=== PATIENT | female | born 1955 | race Caucasian/White ===

== ENCOUNTER 2016-06-10 13:03 | Emergency (ER) | payer OTHER ==
[2016-06-10 13:18] VITALS: TEMP 98
--- NOTE | 2016-06-10 13:51 | CPEKG ---
Heart Rate: 66 RR Interval: 909 P-R Interval: 140 QRSD Interval: 74 QT Interval: 412 QTC Interval: 432 P [place]: 70 QRS [place]: 71 T Wave [place]: 68 EKG Severity - BORDERLINE ECG - EKG Impression: SINUS RHYTHM EKG Impression: BORDERLINE T ABNORMALITIES, ANT-LAT LEADS EKG Impression: No significantinterval changes appreciated when compared to an EKG dated EKG Impression: June 01, 2010 Electronically Signed By: Daniel Washington 10-Jun-2016 15:03:00
--- NOTE | 2016-06-10 14:19 | UCPHY ---
H & P Patient Type: Established Chief Complaint Nursing Narrative: 2 wks ago c/o inc. occular migraines then over past weeks some cognitive issues - yesterday leg weakness and blt arm numbness Time Seen by Provider: 06/10/16 13:08 HPI/ROS: This patient complains of multiple vague neurological complaints over to week. She explains that she has been followed by Dr. Franco, her primary care physician and has outpatient workup occurring including a pending carotid study. She explains that she has had increased frequency of ocular migraines over the past 2 weeks-3 week in the past 2 weeks characterized by right eye scintillating scotoma and occasional mild occipital headaches. Her most recent ocular migraine was 4 days prior to arrival in resolved after about 45 minutes which is typical for her. However she usually only occasionally has ocular migraines with less frequency than this. She notes no clear triggers for the symptoms. She also fell 2 weeks ago that she had difficulty remembering her dog's name was so bit slow in her mentation. That episode is resolved. She described a 2 hour episode of feeling slightly weak in the lower leg 2 weeks ago. Yesterday she had paresthesias in her left arm lasting for 2 hours or so without associated symptoms and this morning she had feeling of right arm heaviness that was brief and resolved prior to arrival. At the moment she is free of any neurological symptoms. ROS: No recent fevers or chills. No significant fatigue. No other constitutional symptoms. HEENT: No recent URI symptoms or sinus pain. Neuro: No headache currently. At the moment no focal numbness tingling weakness. Pulmonary: No cough. No dyspnea. Cardiovascular: No heart palpitations. No chest pain. No lower extremity swelling. GI: No nausea vomiting diaphoresis. : No says complaints. Integumentary: No skin rash endocrine: No complaints 10 point ROS is otherwise negative. Source: Patient Exam Limitations: No limitations - Personal History Current Tetanus Diphtheria and Acellular Pertussis (TDAP): Yes - Medical/Surgical History PMH: Rheumatoid arthritis Legally blind left eye-previous eye surgery with lens dislocation then lens removed and also retinal surgery Possible mild myasthenia Hx Asthma: No Hx Chronic Respiratory Disease: No Hx Diabetes: No Hx Cardiac Disease: No Hx Renal Disease: No Hx Cirrhosis: No Hx Alcoholism: No Hx HIV/AIDS: No Hx Splenectomy or Spleen Trauma: No Other PMH: HYPOTHRYOID, ARTHRITIS - Family History Significant Family History: No pertinent family hx - Social History Smoking Status: Never smoked Alcohol Use: None Drug Use: None - Physical Exam Exam: Physical exam: Vital signs are normal General: Patient is in no acute distress. HEENT: Is no external evidence of trauma on exam. Eyes: Pupils are equal and reactive to light. Extraocular motions are intact. Optic fundi: Clear with no papilledema or hemorrhage. Nose atraumatic. Ears: Clear bilaterally with no hemotympanum. Oropharynx: No dental trauma or malocclusion. No intraoral lacerations. Neck: Supple with no meningismus. Lungs: Clear to auscultation bilaterally Cardiac: Regular rate and rhythm no murmur gallop or rub. No carotid bruits are appreciated. Chest: Nontender. Abdomen: Soft nontender no organomegaly Back: Nontender Extremities: Atraumatic Neuro: GCS of 15. Cranial nerves II through XII intact. Cerebellar exam is normal as judged by symmetric rapid hand movements bilaterally. No pronator drift. No sensory or motor deficits are appreciated. Initial differential diagnosis: Intracranial lesion, intracranial bleed, MS, metabolic disarray, Constitutional: Initial Vital Signs Temperature (C) 36.6 C 06/10/16 13:16 Heart Rate 78 06/10/16 13:16 Respiratory Rate 18 06/10/16 13:16 Blood Pressure 178/103 H 06/10/16 13:16 O2 Sat (%) 97 06/10/16 13:16 O2 Delivery Mode Room Air Allergies/Adverse Reactions: Penicillins Allergy (Verified 12/12/14 20:22) ARTHRITIS REACTION Home Medications: Medication Instructions Recorded Estragial 06/15/13 LEVOTHYROXINE SODIUM [Tirosint 06/15/13 50mcg] Melaxicam 06/15/13 Methotrexate Sodium [Methotrexate] 06/15/13 Diltiazem HCl [Cartia Xt] 12/12/14 Medical Decision Making - Diagnostics EKG Interpretation: 12 lead EKG performed shortly after arrival indication neurologic symptoms rule out dysrhythmia or other Sinus rhythm at 66 performed at 1:[address] segment is normal except for a flat T-wave in V2 when compared to previous EKG dated June 01, 2010 appreciate no significant interval changes. Overall assessment sinus rhythm without evidence of acute ischemia or infarct. Imaging: Imaging Impressions Head CT 06/10/16 13:23 Impression: Negative for intracranial abnormality with the study appearing normal for a patient of this age. Notation that the left lens is missing. Results called and discussed with Dr. Daniel Washington, on June 10, 2016 at 1357 hours. ED Course/Re-evaluation: Patient remained stable throughout her stay here without active neurologic symptoms. No evidence of stroke currently. CT head today's normal. No evidence of intracranial lesions, bleed or other concerning findings. Explain patient warrants further completion of her workup for differential diagnosis includes possible TIAs. She is pursuing this with her neurologist and her internal medicine physician. Departure - Departure Disposition: Home, Routine, Self-Care Clinical Impression: Neurological symptoms Hypertension Qualifiers: Hypertension type: essential hypertension Qualified Code(s): I10 - Essential ( primary) hypertension Condition: Good Instructions: Hypertension (ED) Additional Instructions: Diagnosis: 1. Neurological symptoms 2. Hypertension Your CT brain appears normal today. There is no change in your EKG. Plan: Continue current medications Follow up with your neurologist and with her primary care physician for further workup as planned. Go to the emergency department for any significant worsening of symptoms despite the treatment plan Referrals: Renée Stapleton MD [Primary Care Provider] - As per Instructions - PQRS PQRS Measurement: NA
[2016-06-10 14:24] VITALS: BP 147/77; PULSE 77; RESP 14; O2SAT 96
== END 2016-06-10 14:30 | disposition home or self-care (01) ==
LOC: CED 13:03
DX: I10 Essential (primary) hypertension (principal); R29.818 Other symptoms and signs involving the nervous system; G43.909 Migraine, unspecified, not intractable, without status migrainosus
CPT/HCPCS: 70450-PO; 93010-PO; 99215-PO; G0463-PO

== ENCOUNTER → 2016-12-01 | Outpatient (CLI) | payer OTHER | LOC: BRMIMAGING 13:15 | PROVIDERS: ATTEND Obstetrics & Gynecology | DX: Z12.31 Encounter for screening mammogram for malignant neoplasm of breast (principal) | CPT/HCPCS: G0202 ==

== ENCOUNTER 2017-01-26 23:30 | Emergency (ER) | payer OTHER ==
[2017-01-26] MEDS ORDERED: NS 1,000 ML IV ONE (23:48)
[2017-01-26 23:58] VITALS: TEMP 97.7
[2017-01-27 00:07] LABS: INR 0.98 (0.83-1.16); PROTIME(PATIENT) 12.7 SEC (12.0-15.0)
[2017-01-27 00:09] LABS: % IMMATURE GRANULYOCYTES 0.2 % (0.0-1.1); ABSOLUTE IMMATURE GRANULOCYTES 0.01 10^3/uL (0.00-0.10); ADD DIFF? NO; ADD MORPH? NO; ADD SCAN? NO; ATYPICAL LYMPHOCYTE FLAG 10 (0-99); FRAGMENT RBC FLAG 0 (0-99); HEMATOCRIT 42.8 % (38.0-47.0); HEMOGLOBIN 14.7 g/dL (12.6-16.3); LEFT SHIFT FLG 0 (0-99); LIPEMIA HEMOLYSIS FLAG 90 (0-99); MEAN CELL HEMOGLOBIN 31.7 pg (27.9-34.1); MEAN CELL HEMOGLOBIN CONCENTR. 34.3 g/dL (32.4-36.7); MEAN CELL VOLUME 92.4 fL (81.5-99.8); MEAN PLATELET VOLUME 10.4 fL (8.7-11.7); PLATELET CLUMPS FLAG 0 (0-99); PLATELET COUNT 298 10^3/uL (150-400); RED BLOOD CELL COUNT 4.63 10^6/uL (4.18-5.33)
[2017-01-27 00:11] LABS: ANION GAP 17 mEq/L (8-16); CALCIUM 9.1 mg/dL (8.5-10.4); CARBON DIOXIDE 22 mEq/l (22-31); CHLORIDE 100 mEq/L (97-110); CREATININE 0.7 mg/dL (0.6-1.0); GLOMERULAR FILTRATION RATE > 60; GLUCOSE 136 mg/dL (70-100); POTASSIUM 4.1 mEq/L (3.5-5.2); SODIUM 139 mEq/L (134-144)
--- NOTE | 2017-01-27 00:11 | CPEKG ---
Heart Rate: 81 RR Interval: 741 P-R Interval: 128 QRSD Interval: 80 QT Interval: 384 QTC Interval: 446 P [place]: 75 QRS [place]: 72 T Wave [place]: 66 EKG Severity - BORDERLINE ECG - EKG Impression: SINUS RHYTHM EKG Impression: PROBABLE LEFT ATRIAL ABNORMALITY EKG Impression: BORDERLINE T ABNORMALITIES, ANT-LAT LEADS, coving seen in V5 and V6 is EKG Impression: unchanged from June 10, 2016. Stable mild coving. Electronically Signed By: Duane Navarrete 27-Jan-2017 02:28:53
--- NOTE | 2017-01-27 00:19 | EDPHY ---
H & P Time Seen by Provider: 01/26/17 23:47 HPI/ROS: CHIEF COMPLAINT: Left facial droop, improving HISTORY OF PRESENT ILLNESS: this is a neurologically complicated 61-year-old female with prior history of myasthenia gravis, and in particular, the last 6 months with migratory numbness and paresthesias along with increasing ocular migraine. Tonight she is here for facial droop. This is a new finding for her, something she has never had before, though it is improving. Onset was approximately 20 minutes prior to arrival. She was at home resting, though working on the computer doing some Telugu lessons as well as watching TV. It was at that time approximately, an hour and half prior to admission, 1030pm, that she started having some central vision changes which is her typical ocular migraine. Of note, often times, in fact usually, it will migrate to cause visual changes in the periphery. However, the did not do that at this time. Further, it did not involve the headache per se. At approximately 11:30 p.m. she felt a sense of numbness in thickness to her left lip. [facility] and noted a facial droop and thus a pretty much dropped everything and came on over. She had noted herself some improvement but time she arrived. On arrival our nurse noted droop that was mild. By the time I saw her was barely perceptible. She denies other neurologic problems such as visual field defect (has pre- existing left visual field cut), as well as norm other numbness, difficulty speaking, difficulty with enunciation, or articulating, or word-finding, or word salad. No motor weakness. Onset: At 10:30 p.m., less than 3 hours ago Activity at time of onset: watching TV Computer work Clinical Course: improved almost resolved Symptoms: Left facial droop and sense of thickening to the left lip History of potential mimics: Migraine migratory paresthesias workup in the last 6 months including C-spine MRI which was negative Prior Neurological Work Up: She notes that she had an MRI of the brain this past summer though I have not been able to localize it on the [employer] web site. REVIEW OF SYSTEMS: Constitutional: No fever, no chills. Eyes: No discharge No diplopia ENT: No sore throat. Cardiovascular: No chest pain, no palpitations. Respiratory: No cough, shortness of breath, or wheezing. Gastrointestinal: No nausea vomiting or diarrhea. No abdominal pain. Genitourinary: No flank pain. Musculoskeletal: No motor weakness or back pain. Skin: No rashes. Neurological: No headache, see above 10 point ROS otherwise negative Source: Patient Exam Limitations: No limitations - Medical/Surgical History Hx Asthma: No Hx Chronic Respiratory Disease: No Hx Diabetes: No Hx Cardiac Disease: No Hx Renal Disease: No Hx Cirrhosis: No Hx Alcoholism: No Hx HIV/AIDS: No Hx Splenectomy or Spleen Trauma: No Other PMH: HYPOTHRYOID, ARTHRITIS,Myesthenia Gravis, Migraine with aura, Rheumatoid Arthritis. - Social History Smoking Status: Never smoked Alcohol Use: None Drug Use: None - Physical Exam Exam: General Appearance: Alert, no distress. Afebrile. Normal phonation. No respiratory distress. Eyes: Pupils equal and round no pallor or injection. No icterus ENT, Mouth: Mucous membranes moist. Pharynx without erythema or exudate. TM Clear. Neck: No adenopathy. Supple. No JVD. Trachea in midline. Respiratory: There are no retractions, lungs are clear to auscultation. Chest wall: Nontender to palpation. No crepitus. Cardiovascular: Regular rate and rhythm, no murmurs. Abdomen: Soft and nontender. Neurological: Ox3. No motor weakness. Sensation intact. Gait nl. CN 2-12 intact except pre-existing left visual field deficit which is globally reduced on the periphery. Visual Steiner as above EOMI nl Gait nl Speech fluent Enuciation nl Motor: nl Sensation: nl Skin: Warm and dry, no rashes. Musculoskeletal: No joint swelling. Extremities: No edema. Homans sign negative. No cords. Psychiatric: Normal affect. Patient is oriented X 3. There is no agitation Constitutional: Initial Vital Signs Temperature (C) 36.5 C 01/26/17 23:30 Heart Rate 100 01/26/17 23:30 Respiratory Rate 20 01/26/17 23:30 Blood Pressure 192/98 H 01/26/17 23:30 O2 Sat (%) 95 01/26/17 23:30 O2 Delivery Mode Room Air Allergies/Adverse Reactions: Penicillins Allergy (Verified 12/12/14 20:22) ARTHRITIS REACTION Home Medications: Medication Instructions Recorded Estragial 06/15/13 LEVOTHYROXINE SODIUM [Tirosint 06/15/13 50mcg] Melaxicam 06/15/13 Methotrexate Sodium [Methotrexate] 06/15/13 Diltiazem HCl [Cartia Xt] 12/12/14 FOLIC ACID 01/26/17 Medical Decision Making - Diagnostics EKG Interpretation: EKG: Interpreted by me contemporaneously. Rhythm: [Normal sinus rhythm.] Heart rate 81 QTc 446 QRS: [normal] STT segment: Mild coving in leads V5 and V6, unchanged from June 10, 2016 T Waves: [Normal] Q waves [none] Summary: Old coving in V5 V6, unchanged from June 10, 2016 Imaging Results: CT scan of the brain without contrast, as interpreted by the radiologist and discussed with radiologist and reviewed by me: No acute change, no signs of stroke involvement. No hemorrhage. Unchanged from June 10, 2016. Films reviewed by me on the PACS Imaging: Discussed imaging studies w/ yard caller Radiologist ED Course/Re-evaluation: Close exam, while his 1st interviewed her, the little of the left facial droop that was there resolved completely. Her neurologic exam thereafter remained normal. Her blood pressure was somewhat elevated initially at 192 systolic. It progressively came down slowly on its own to approximately 168. This remained elevated from her baseline per her history. She declined any Ativan. She will have follow-up for this later this week. CT scan of the head was read by noon the neurologist is negative, case discussed with urologist, films reviewed by me on the PACS. Patient was rechecked if the CT scan and showed continued complete resolution. Blood pressure was improving Case discussed with Dr. Richards of [facility]. He concurred that this was a complex migraine, resolved, was not indication for tPA. He did advise a MRI later in the week, or as a consideration overnight observation and performing the morning. I discussed case with the hospitalist at [facility] who concurred with the plan for outpatient management as the patient research such. I did give the patient the option of going to [facility] tonight, be seen in their ER, and have a MRI tonight. She declined. She is aware of the shortened work week and potential delay. Subsequently started on aspirin 324 mg p.o. she was directed to take the aspirin prior trim blocks can to avoid any interference of the aspirin efficacy. Differential Diagnosis: Differential Includes but is not limited to: Intraparenchymal hemorrhage, subarachnoid hemorrhage, migraine, complex migraine , seizures, CVA, TIA. - Data Points Laboratory Results: Laboratory Results 01/26/17 23:48 01/26/17 23:48 Medications Given: Discontinued Medications Aspirin (Aspirin) 324 mg PO EDNOW ONE Stop: 01/27/17 00:52 Last Admin: 01/27/17 00:58 Dose: 324 mg Aspirin (Aspirin) 324 mg PO EDNOW ONE Stop: 01/27/17 00:53 Last Admin: 01/27/17 00:58 Dose: Not Given Sodium Chloride (Ns) 1,000 mls @ 500 mls/hr IV EDNOW ONE PRN Reason: Protocol Stop: 01/27/17 01:47 Last Admin: 01/27/17 00:06 Dose: 1,000 mls Departure - Departure Disposition: Home, Routine, Self-Care Clinical Impression: Left Facial Droop, Migraine aura without headache (migraine equivalents), Hypertension Condition: Good Instructions: Hypertension (ED), Ocular Migraine (ED) Additional Instructions: Tomorrow night, take aspirin 81 mg 1 hour prior to her meloxicam. Tonight, since she received aspirin here, take your meloxicam in our Tomorrow, Call your family doctor and ask for follow up this week. As you have suggested, calling your neurologist would be reasonable as well. Referrals: Renée Stapleton MD [Medical Doctor] - 1-2 days without fail
[2017-01-27] MEDS ORDERED: ASPIRIN 81 MG CHEWABLE TAB PO ONE ×2 (00:51→00:52)
[2017-01-27 01:10] VITALS: BP 162/80; PULSE 99; RESP 17; O2SAT 95
== END 2017-01-27 01:05 | disposition home or self-care (01) ==
LOC: CED 23:30
DX: R29.810 Facial weakness (principal); G43.109 Migraine with aura, not intractable, without status migrainosus; I10 Essential (primary) hypertension; E86.9 Volume depletion, unspecified
CPT/HCPCS: 70450-PO; 80048-PO; 82947-QW; 85025-PO; 85610-PO

== ENCOUNTER → 2017-02-10 | Outpatient (CLI) | payer OTHER ==
[~2017-02-10] MED LIST: GADOBUTROL 10 ML VIAL IVP ONE
== END ==
LOC: FIMAGING 13:37
PROVIDERS: ATTEND Internal Medicine
DX: J32.0 Chronic maxillary sinusitis (principal)
CPT/HCPCS: A9585

== ENCOUNTER → 2017-12-23 | Outpatient (CLI) | payer OTHER | LOC: CIMAGING 10:34 | PROVIDERS: ATTEND Obstetrics & Gynecology | DX: Z12.31 Encounter for screening mammogram for malignant neoplasm of breast (principal) ==

== ENCOUNTER 2018-04-27 17:32 | Inpatient (IN) | payer OTHER ==
--- NOTE | 2018-04-27 17:51 | EDPHY ---
H & P Stated Complaint: NAUSEA SINCE THURSDAY, SEEN IN [facility] TODAY, GIVEN 2 L NS AND ZOFRAN Time Seen by Provider: 04/27/18 17:47 HPI/ROS: CHIEF COMPLAINT: Nausea and vomiting HISTORY OF PRESENT ILLNESS: The patient is a 62-year-old female whose had mild nausea and occasional vomiting for the last 5 days. She contributes it to poor timing of her methotrexate dose. She takes this once weekly for rheumatoid arthritis. She took it last on an empty stomach late at night. She typically takes it on a full stomach. She has had mild nausea ever since. She states that she has vomited 2-3 times nonbloody. No diarrhea. No fever. She denies abdominal pain but has had continued nausea. No chest pain or shortness of breath. No sick contacts. She presented to her primary doctor This morning felt that it was likely the methotrexate making her nauseous and recommended she go to the urgent care for IV hydration. She did go to the urgent care and received 2 L of IV hydration as well as IV Zofran. She felt much better initially however when her nausea returned the urgent care recommended she come to the ER to have her electrolytes checked. She has not had difficulty urinating. No vaginal symptoms. Severity: Moderate Modifying factors: Improvement with Zofran and IV fluids REVIEW OF SYSTEMS: Constitutional: denies: chills, fever, recent illness, recent injury EENTM: denies: blurred vision, double vision, nose congestion Respiratory: denies: cough, shortness of breath Cardiac: denies: chest pain, irregular heart rate, lightheadedness, palpitations Gastrointestinal/Abdominal: See HPI denies: abdominal pain, diarrhea, blood streaked stools Genitourinary: denies: dysuria, frequency, hematuria, pain Musculoskeletal: denies: joint pain, muscle pain Skin: denies: lesions, rash, jaundice, bruising Neurological: denies: headache, numbness, paresthesia, tingling, dizziness, weakness Hematologic/Lymphatic: denies: blood clots, easy bleeding, easy bruising Immunologic/allergic: denies: HIV/AIDS, transplant 10 systems reviewed and negative except as noted EXAM: GENERAL: Well-appearing, well-nourished and in no acute distress. HEAD: Atraumatic, normocephalic. EYES: Pupils equal round and reactive to light, extraocular movements intact, sclera anicteric, conjunctiva are normal. ENT: TMs normal, nares patent, oropharynx clear without exudates. Moist mucous membranes. NECK: Normal range of motion, supple without lymphadenopathy or JVD. LUNGS: Breath sounds clear to auscultation bilaterally and equal. No wheezes rales or rhonchi. HEART: Regular rate and rhythm without murmurs, rubs or gallops. ABDOMEN: Soft, nontender, normoactive bowel sounds. No guarding, no rebound. No masses appreciated. BACK: No CVA tenderness, no spinal tenderness, step-offs or deformities EXTREMITIES: Normal range of motion, no pitting or edema. No clubbing or cyanosis. NEUROLOGICAL: Cranial nerves II through XII grossly intact. Normal speech, normal gait. 5/5 strength, normal movement in all extremities, normal sensation , normal reflexes PSYCH: Normal mood, normal affect. SKIN: Warm, dry, normal turgor, no visible rashes or lesions. Source: Patient Exam Limitations: No limitations - Personal History Current Tetanus Diphtheria and Acellular Pertussis (TDAP): Yes - Medical/Surgical History Hx Asthma: No Hx Chronic Respiratory Disease: No Hx Diabetes: No Hx Cardiac Disease: No Hx Renal Disease: No Hx Cirrhosis: No Hx Alcoholism: No Hx HIV/AIDS: No Hx Splenectomy or Spleen Trauma: No Other PMH: HYPOTHRYOID, ARTHRITIS,Myesthenia Gravis, Migraine with aura, Rheumatoid Arthritis. - Family History Significant Family History: No pertinent family hx - Social History Smoking Status: Never smoked Alcohol Use: None Constitutional: Initial Vital Signs Temperature (C) 37.3 C 04/27/18 17:41 Heart Rate 120 H 04/27/18 17:41 Respiratory Rate 16 04/27/18 17:41 Blood Pressure 160/96 H 04/27/18 17:41 O2 Sat (%) 92 04/27/18 17:41 O2 Delivery Mode Nasal Cannula O2 (L/minute) 2 Allergies/Adverse Reactions: Penicillins Allergy (Verified 04/27/18 18:21) ARTHRITIS REACTION Home Medications: Medication Instructions Recorded Brimonidine 0.2% [Alphagan 0.2%] 1 drop EACHEYE BID 04/28/18 Cholecalciferol Vit D3 [Vitamin D3 1,000 units PO DAILY 04/28/18 (*)] Diltiazem HCl [Cartia XT 180mg] 180 mg PO HS 04/28/18 Folic Acid [Folic Acid 1 MG (*)] 2 mg PO HS 04/28/18 Meloxicam 15 mg PO HS 04/28/18 Methotrexate Sodium/Pf 25 mg IJ TH 04/28/18 [Methotrexate 50 mg/2 ml Vial] Multivitamins [Multivitamin (*)] 1 each PO DAILY 04/28/18 Naltrexone 4.5mg 4.5 mg PO DAILY 04/28/18 Medical Transcription Editor Thyroid 60mg 90 mg PO DAILY 04/28/18 Ondansetron HCl [Zofran] 8 mg PO TID PRN 04/28/18 Tafluprost/Pf [Zioptan 0.0015% Eye 1 each RTEYE HS 04/28/18 Drops] cycloSPORINE 0.05% [Restasis Opht 1 drop EACHEYE BID 04/28/18 Drops(*)] Medical Decision Making - Diagnostics EKG Interpretation: An EKG obtained and was read and documented in trace view. Please see trace view for full reading and report. Sinus tachycardia, no acute ischemic changes ED Course/Re-evaluation: 7:00 p.m. the patient is still feeling nauseous. Will treat with Phenergan. She has a temperature of 99.5 degrees. Will treat with Tylenol. She takes meloxicam daily. She thought Tylenol might interact with methotrexate but it does not according to our database. She also has a positive urinalysis. She does now admit to slight dysuria this morning. This may be responsible for the low-grade fevers and tachycardia nausea. Will start on Keflex. A do not see any adverse reactions with this in her myasthenia gravis. Patient reports that she has been known to have tachycardia before this is part of why she takes diltiazem. 8:00 p.m. the patient remains tachycardic. Her temperature went up to 100.3 degrees. She has received 3 L of fluid. She is going to the bathroom several times. I suggested admission for pyelonephritis. I suggested admission. Patient agrees. We will obtain lactate and blood cultures. Differential Diagnosis: Partial list of the Differential diagnosis considered include but were not limited to; gastritis, medication reaction, pyelonephritis, urinary tract infection, sepsis and although unlikely based on the history and physical exam, I also considered arrhythmia, acute coronary disease, meningitis, volvulus, ischemia. - Data Points Medications Given: Acetaminophen (Tylenol) 650 mg PO Q4HRS PRN PRN Reason: Pain, Mild/Fever, Can Take PO Stop: 10/24/18 22:31 Last Admin: 04/28/18 13:54 Dose: 650 mg Diltiazem HCl (Cardizem Er Q24hr) 180 mg PO HS NITZA Stop: 10/24/18 22:44 Last Admin: 04/27/18 23:49 Dose: 180 mg Sodium Chloride (Ns) 1,000 mls @ 100 mls/hr IV CONT NITZA Stop: 10/24/18 22:44 Last Admin: 04/28/18 00:48 Dose: 1,000 mls Melatonin (Melatonin) 6 mg PO HS NITZA Stop: 10/25/18 01:29 Last Admin: 04/28/18 01:43 Dose: 6 mg Ondansetron HCl (Zofran) 4 mg IVP Q4HRS PRN PRN Reason: Nausea/Vomiting, Can't Take PO Stop: 10/24/18 22:31 Last Admin: 04/28/18 13:46 Dose: 4 mg Discontinued Medications Acetaminophen (Tylenol) 1,000 mg PO EDNOW ONE Stop: 04/27/18 19:09 Last Admin: 04/27/18 19:20 Dose: 1,000 mg Sodium Chloride (Ns) 1,000 mls @ 0 mls/hr IV EDNOW ONE; Wide Open PRN Reason: Protocol Stop: 04/27/18 17:53 Last Admin: 04/27/18 18:36 Dose: 1,000 mls Ceftriaxone Sodium/Dextrose (Rocephin 1 Gm (Premix)) 50 mls @ 100 mls/hr IV EDNOW ONE PRN Reason: Protocol Stop: 04/27/18 19:38 Last Admin: 04/27/18 19:20 Dose: 50 mls Ondansetron HCl (Zofran) 4 mg IVP EDNOW ONE Stop: 04/27/18 17:53 Last Admin: 04/27/18 18:36 Dose: 4 mg Promethazine HCl (Phenergan) 25 mg IVP EDNOW ONE Stop: 04/27/18 19:07 Last Admin: 04/27/18 19:13 Dose: 25 mg Point of Care Test Results: CBC CBC Collection Date 04/27/18 CBC Collection Time 18:10 WBC 11.28 RBC 4.13 HGB 12.4 HCT 37.3 PLT 214 Neut # 9.38 Neut 83.1 LYMPH # 0.55 LYMPH 4.9 MCV 90.3 Chemistry 04/27/18 18:12 POC Sodium 136 mEq/L mEq/L (135-145) POC Potassium 3.3 mEq/L mEq/L (3.3-5.0) POC Chloride 104.0 mEq/L mEq/L (97-110) POC Total CO2 25 mEq/L mEq/L (22-31) POC BUN 10 mg/dL mg/dL (7-23) POC Creatinine 1.0 mg/dL mg/dL (0.6-1.0) POC Glucose 136 mg/dL H mg/dL (70-100) POC Calcium 9.3 mg/dL mg/dL (8.5-10.4) POC Total Bilirubin 0.7 mg/dL mg/dL (0.1-1.4) POC AST 37 IU/L IU/L (14-46) POC ALT 38 IU/L IU/L (9-52) POC Alk Phosphatase 156 IU/L H IU/L (38-126) POC Total Protein 7.0 g/dL g/dL (6.3-8.2) POC Albumin 3.5 g/dL g/dL (3.5-5.0) Urine Dip Collection Date 04/27/18 Collection Time 18:40 Specific [place] (1.002-1.030) 1.015 PH (5.0-7.5) 7.0 Leukocytes (Negative) 2+ Nitrites (Negative) Positive Protein (Negative) 1+ Glucose (Negative) Negative Ketones (Negative) Negative Urobilnogen (0.2-1.0 EU) 0.2 Bilirubin (Negative) Negative Blood (Negative) 2+ Departure - Departure Disposition: [facility] Clinical Impression: Acute pyelonephritis, Tachycardia Condition: Fair
[2018-04-27] MEDS ORDERED: NS 1,000 ML IV ONE (17:52)
[2018-04-27] MEDS ORDERED: ONDANSETRON 4 MG/2 ML VIAL IVP ONE (17:52)
[2018-04-27] MEDS ORDERED: PROMETHAZINE HCL 25 MG/ML INJ IVP ONE (19:06)
[2018-04-27] MEDS ORDERED: ACETAMINOPHEN 500 MG TAB PO ONE (19:08)
--- NOTE | 2018-04-27 19:16 | CPEKG ---
Test Reason : OPEN Blood Pressure : / mmHG Vent. Rate : 117 BPM Atrial Rate : 118 BPM P-R Int : 143 ms QRS Dur : 070 ms QT Int : 303 ms P-R-T Axes : 084 078 032 degrees QTc Int : 423 ms Sinus tachycardia Right atrial enlargement Borderline T abnormalities, anterior leads Confirmed by Erwin Bolaños ([id number]) on 04/27/2018 7:16:14 PM Referred By: Erwin Bolaños Confirmed By:Erwin Bolaños
[2018-04-27] MEDS ORDERED: PROMETHAZINE HCL 25 MG/ML INJ IVP PRN (22:32)
[2018-04-27] MEDS ORDERED: LORazepam 0.5 MG TAB PO PRN (22:32)
[2018-04-27] MEDS ORDERED: diphenhydrAMINE 25 MG CAP PO PRN (22:32)
[2018-04-27] MEDS ORDERED: ONDANSETRON DISINTEGRATING 4 MG TAB PO PRN (22:32)
[2018-04-27] MEDS ORDERED: NS 1,000 ML IV SCH (22:45)
[2018-04-27] MEDS: DILTIAZEM CD 180 MG CAP PO SCH (23:49)
[2018-04-28] MEDS: MELATONIN 3 MG TAB PO SCH ×2 (01:43→21:04)
--- NOTE | 2018-04-28 02:48 | PDGENHP ---
History and Physical - Chief Complaint Nausea vomiting, fever - History of Present Illness Source-patient provides history appears reliable. EMR was reviewed and case discussed with accepting hospitalist. HPI-is a pleasant 62-year-old female with past medical history significant for rheumatoid arthritis on injectable methotrexate, myasthenia gravis, migraine, hypothyroidism, paroxysmal atrial fibrillation who presents emergency department at [facility] with complaints of intractable nausea vomiting. Patient reports she has had ongoing symptoms for the last several days. She last gave herself her methotrexate injection approximately 6 days ago. She subsequently developed severe nausea vomiting several hours after administration which has happened in the past and persistent chills. She had follow up with primary care doctor and both felt that this was reaction to her injectable. Two days ago however patient developed fevers. She has continued to have underlying chills and some mild sweats. She denies any flank pain or abdominal pain. She does note that she did experience acute on chronic dysuria on morning of presentation. Patient reports that she has been having some difficulties initiating stream for the past 6 months. She has not had any bladder incontinence. She has had acute exacerbation of her symptoms x1 day. She denies any hematuria. She reports a remote history of UTI. History Information - Allergies/Home Medication List Allergies/Adverse Reactions: Penicillins Allergy (Verified 04/27/18 18:21) ARTHRITIS REACTION Home Medications: Estragial 06/15/13 [Last Taken Unknown] LEVOTHYROXINE SODIUM [Tirosint 50mcg] 06/15/13 [Last Taken Unknown] Melaxicam 06/15/13 [Last Taken Unknown] Methotrexate Sodium [Methotrexate] 06/15/13 [Last Taken Unknown] Diltiazem HCl [Cartia Xt] 12/12/14 [Last Taken Unknown] FOLIC ACID 01/26/17 [Last Taken Unknown] I have personally reviewed and updated: family history, medical history, social history, surgical history - Past Medical History Additional medical history: Rheumatoid arthritis on injectable methotrexate, mice any a gravis, migraines with aura, hypothyroidism, persistent postmenopausal hot flashes and intermittent chills. Paroxysmal atrial fibrillation. History shingles 2001. Glaucoma. - Surgical History Additional surgical history: Jaw, eye, knee - Family History Additional family history: Negative for autoimmune illnesses. - Social History Smoking Status: Never smoked Alcohol Use: None Drug Use: None Additional social history: Patient lives with her youngest daughter. Cor status -full. Patient does not want prolonged intubation. Review of Systems Review of Systems: ROS: 10pt was reviewed & negative except for what was stated in HPI & below Constitutional: Reports: chills, fever EENMT: Reports: no symptoms, other (Wears glasses.) Cardiac: Reports: no symptoms Respiratory: Reports: no symptoms Gastrointestinal: Reports: vomitting, nausea. Denies: abdominal pain, abdominal distention, diarrhea Genitourinary: Reports: dysuria, other (Negative for flank pain). Denies: hematuria Muscolosketal: Reports: other (Chronic diffuse musculoskeletal pain.) Skin: Reports: no symptoms Neurological: Reports: no symptoms, weakness Hematologic/Lymphatic: Reports: no symptoms Physical Exam Physical Exam: Selected Entries 04/27/18 17:41 Heart Rate 120 H Respiratory 16 Rate O2 Sat (%) 92 Temperature (C) 37.3 C Blood Pressure 160/96 H Mean Arterial 117 H Pressure (MAP) O2 Delivery Room Air Mode Temperature Oral Source Temp Pulse Resp BP Pulse Ox 37.3 C 103 H 18 110/76 94 04/27/18 23:48 04/27/18 23:49 04/27/18 23:48 04/27/18 23:49 04/27/18 22:33 O2 (L/minute) 94 Constitutional: no apparent distress, appears nourished, other (NAD. Pleasant adult female is with ambulating from back in back to the bed. She is cautious slightly shuffled gait. She is pleasant cooperative.) Eyes: PERRL (Slightly decreased reactivity light bilaterally but symmetric.), anicteric sclera, EOMI (Grossly normal) Ears, Nose, Mouth, Throat: moist mucous membranes, other (No nasal discharge) Cardiovascular: regular rate and rhythym, no murmur, rub, or gallop, pulses symmetric bilaterally, tachycardia (One hundred) Peripheral Pulses: 1+: dorsalis-pedis (R), dorsalis-pedis (L) Respiratory: no respiratory distress, no rales or rhonchi, clear to auscultation , No inspiratory crackles Gastrointestinal: normoactive bowel sounds, soft, non-tender abdomen, no palpable masses, No distension Genitourinary: no bladder tenderness, other (No CVA tenderness), No mendez in urethra Skin: warm, normal color, no rashes or abrasions Musculoskeletal: other (Patient is able to move all extremities, sits up independently.) Psychiatric: interacting appropriately, not anxious, not encephalopathic, thought process linear Lab Data & Imaging Review POC Sodium 136 mEq/L (135-145) 04/27/18 18:12 POC Potassium 3.3 mEq/L (3.3-5.0) 04/27/18 18:12 POC Chloride 104.0 mEq/L (97-110) 04/27/18 18:12 POC Total CO2 25 mEq/L (22-31) 04/27/18 18:12 POC BUN 10 mg/dL (7-23) 04/27/18 18:12 POC Creatinine 1.0 mg/dL (0.6-1.0) 04/27/18 18:12 POC Glucose 136 mg/dL (70-100) H 04/27/18 18:12 POC Lactic Acid Josue 0.5 mmol/L (0.7-2.1) L 04/27/18 20:17 POC Calcium 9.3 mg/dL (8.5-10.4) 04/27/18 18:12 POC Total Bilirubin 0.7 mg/dL (0.1-1.4) 04/27/18 18:12 POC AST 37 IU/L (14-46) 04/27/18 18:12 POC ALT 38 IU/L (9-52) 04/27/18 18:12 POC Alk Phosphatase 156 IU/L (38-126) H 04/27/18 18:12 POC Total Protein 7.0 g/dL (6.3-8.2) 04/27/18 18:12 POC Albumin 3.5 g/dL (3.5-5.0) 04/27/18 18:12 UA SG 1.015, pH 7.0, leuk 2+, nitrites +, prot 1+, blood 2+ WBC 11.28, H/H 12.4/37.3, plt 214, MCV 90.3 EKG additional interpertation: Sinus tach in the 110s. FRANSISCA. T-wave flattening in the anterior leads which is not significantly changed compared to previous EKGs in EMR. No acute ST changes. QTC 423. Assessment & Plan Assessment: This a pleasant 62-year-old female with past medical history significant for rheumatoid arthritis on injectable methotrexate, myasthenia gravis, migraine, hypothyroidism, paroxysmal atrial fibrillation who presents emergency department at [facility] with complaints of intractable nausea vomiting. #UTI without hematuria - patient with positive nitrites positive blood positive leuko esterase on her U dip at [facility]. She has been started on Rocephin. This does not appear to be on list contraindicated in patients with myasthenia. Urine cultures pending. #Tachycardia (Acute) - sepsis without organ dysfunction as patient with a tachycardia and fever. Patient's tachycardia remain slightly elevated but is slowly improving. Will continue IV fluid hydration. Tylenol p.r.n. For any fevers. Continue antibiotics as noted above. # not intractable nausea vomiting - patient received Zofran and Phenergan in the emergency department. Her nausea vomiting have improved. She is tolerating some sips of water. She is now complaining of restless leg syndrome likely Phenergan contributing. Chronic medical issues # myasthenia gravis # rheumatoid arthritis on MTX # paroxysmal atrial fibrillation # glaucoma # hypothyroidism FEN - continue IV fluids overnight. Advance diet as tolerated. Electrolytes appear adequate at this time. Replace if needed. PPX - SCDS ordered however patient reports she is having restless leg syndrome this will probably take caused some discomfort. Patient is mobilizing frequently. Holding anticoagulation anticipating short hospital stay. Cor status-full. Patient would not want prolonged life support. Disposition-patient admitted observation status on the [facility] floor for continued monitoring of her tachycardia and IV fluid hydration.
[2018-04-28] MEDS: ONDANSETRON 4 MG/2 ML VIAL IVP PRN ×3 (02:53→13:46)
[2018-04-28 05:42] LABS: PLATELET COUNT 207 10^3/uL (150-400)
[2018-04-28] MEDS ORDERED: ENOXAPARIN 40 MG/0.4 ML SYR SC SCH (09:00)
[2018-04-28] MEDS: ACETAMINOPHEN 325 MG TAB PO PRN ×2 (13:54→21:03)
--- NOTE | 2018-04-28 16:24 | ASMTCMCOM ---
CM Note CM Note Notes: 04/28/2018 Case Management Note Reviewed chart. Pt admitted with intractable nausea and vomiting. Pt has history of rheumatoid arthritis, myasthenia gravis, migraine, hypothyroidism, and afib. There are no therapy evals ordered at this time. PCP is Dr. Moctezuma with [facility]. Case Management d/c poc: anticipating independent with follow up as directed. Case Management available if needs change. Date Signed: 04/28/2018 04:23 PM Electronically Signed By:Dena Molina RN
[2018-04-28] MEDS ORDERED: NS 1,000 ML IV SCH (16:30)
--- NOTE | 2018-04-28 16:30 | HOSPPROG ---
Hospitalist Progress Note Assessment/Plan: This a pleasant 62-year-old female with past medical history significant for rheumatoid arthritis on injectable methotrexate, myasthenia gravis, migraine, hypothyroidism, paroxysmal atrial fibrillation who is admitted UTI and likely sepsis #Likely Sepsis #Dehydration, improving #UTI #Immunosuppression #N/V #Hyponatremia, due to volume deficit #RA #pAfib Cor status-full. Patient would not want prolonged life support. Plan: inpatient cont IVF, will decrease rate and provide one additional liter. uop is better. urine not as concentrated. no signs of volume overload but concern if too much fluid. hemodynamically stable cont Rocephin Await cultures antiemetics home meds SCD's PT/OT Subjective: feels better. still with fever. BP better, still with some tachycardia. Objective: Vital Signs Temp Pulse Resp BP Pulse Ox 38.7 C H 109 H 16 110/63 95 04/28/18 15:18 04/28/18 15:18 04/28/18 15:18 04/28/18 15:18 04/28/18 15:18 Laboratory Results 04/28/18 05:10 04/28/18 05:10 04/27/18 04/28/18 04/29/18 05:59 05:59 05:59 Intake Total 1200 Output Total 800 700 Balance 400 -700 - Physical Exam Constitutional: no apparent distress Eyes: PERRL Ears, Nose, Mouth, Throat: moist mucous membranes, hearing normal Cardiovascular: regular rate and rhythym, No edema Respiratory: no respiratory distress, no rales or rhonchi Gastrointestinal: normoactive bowel sounds, No distension Skin: warm Neurologic: AAOx3 Psychiatric: interacting appropriately, not anxious, not encephalopathic Lymph, Heme, Immunologic: No petechiae ICD10 Worksheet Patient Problems: Problems Problem Status Onset Acute pyelonephritis Acute Tachycardia Acute
--- NOTE | 2018-04-28 19:31 | PDMN ---
Medical Necessity Medical necessity: [facility] M160 Sepsis, A-3 days: 62 yo w/ intractable N/V. Further eval reveals UTI w/ tachycardia and fever, initially OBS for workup/tx of sepsis but pt requiring additional MN for ongoing tx of sepsis in setting of immunosuppression (see Hx) meeting IP med nec care w/ ongoing IVF and IV antibx and frequent IV antiemetic admin. Pt cont to be tachycardic despite observation care and temp 38.7 today. Hx RA on injectable MTX, myasthenia gravis, migraines , hypothyroid, paroxysmal afib. Change to IP status 04/28/18@1631 per order.
[2018-04-28] MEDS: DILTIAZEM CD 180 MG CAP PO SCH (21:04)
[2018-04-28] MEDS: FOLIC ACID 1 MG TAB PO SCH (21:04)
[2018-04-28] MEDS: cycloSPORINE 0.05% 30 DROPERETTE/BOX EACHEYE SCH (21:05)
[2018-04-28] MEDS: Tafluprost/Pf [Zioptan 0.0015% Eye Drops] RTEYE SCH (21:08)
[2018-04-28] MEDS: BRIMONIDINE 0.2% 5 ML OPHT.BTL EACHEYE SCH (21:09)
[2018-04-29 05:41] LABS: PLATELET COUNT 216 10^3/uL (150-400)
[2018-04-29] MEDS: BRIMONIDINE 0.2% 5 ML OPHT.BTL EACHEYE SCH ×2 (07:48→20:28)
[2018-04-29] MEDS: cycloSPORINE 0.05% 30 DROPERETTE/BOX EACHEYE SCH ×2 (07:49→20:28)
[2018-04-29] MEDS: THYROID 60 MG TAB PO SCH (09:13)
[2018-04-29] MEDS: CHOLECALCIFEROL VIT D3 1,000 UNITS TAB PO SCH (09:13)
[2018-04-29] MEDS: MULTIVITAMINS 1 EACH TAB PO SCH (09:13)
[2018-04-29] MEDS: Naltrexone 4.5mg 4.5 MG PO SCH ×2 (15:31→18:10)
--- NOTE | 2018-04-29 16:16 | HOSPPROG ---
Hospitalist Progress Note Assessment/Plan: This a pleasant 62-year-old female with past medical history significant for rheumatoid arthritis on injectable methotrexate, myasthenia gravis, migraine, hypothyroidism, paroxysmal atrial fibrillation who is admitted UTI and likely sepsis #Likely Sepsis #Dehydration, improving #UTI, UCX c/w E-Coli #Immunosuppression #N/V #Hyponatremia, due to volume deficit #RA #pAfib #Fever, last fever around 1500 on 04/28 Cor status-full. Patient would not want prolonged life support. Plan: cont inpatient stop IVF cont Rocephin one more day Await blood culture antiemetics home meds SCD's PT/OT likely home tomorrow Subjective: feels better overall. not back to baseline Objective: Vital Signs Temp Pulse Resp BP Pulse Ox 37.5 C 105 H 12 144/96 H 92 04/29/18 15:36 04/29/18 15:36 04/29/18 15:36 04/29/18 15:36 04/29/18 15:36 Laboratory Results 04/29/18 04:48 04/29/18 04:48 04/28/18 04/29/18 04/30/18 05:59 05:59 05:59 Intake Total 1000 275 Output Total 700 1200 Balance 300 -925 - Physical Exam Constitutional: no apparent distress Eyes: PERRL, EOMI Ears, Nose, Mouth, Throat: moist mucous membranes, hearing normal Cardiovascular: regular rate and rhythym, No edema Respiratory: no respiratory distress, no rales or rhonchi, clear to auscultation Gastrointestinal: normoactive bowel sounds, soft, non-tender abdomen Skin: warm Neurologic: AAOx3 Psychiatric: interacting appropriately, not anxious, not encephalopathic Lymph, Heme, Immunologic: No petechiae ICD10 Worksheet Patient Problems: Problems Problem Status Onset Acute pyelonephritis Acute Tachycardia Acute
[2018-04-29] MEDS: ACETAMINOPHEN 325 MG TAB PO PRN (18:17)
[2018-04-29] MEDS: DILTIAZEM CD 180 MG CAP PO SCH (20:27)
[2018-04-29] MEDS: FOLIC ACID 1 MG TAB PO SCH (20:28)
[2018-04-29] MEDS: Tafluprost/Pf [Zioptan 0.0015% Eye Drops] RTEYE SCH (20:29)
[2018-04-29] MEDS ORDERED: Meloxicam [Meloxicam] 15 MG PO SCH (21:00)
[2018-04-29] MEDS: MELATONIN 3 MG TAB PO SCH (21:18)
[2018-04-30] MEDS: CHOLECALCIFEROL VIT D3 1,000 UNITS TAB PO SCH (08:22)
[2018-04-30] MEDS: MULTIVITAMINS 1 EACH TAB PO SCH (08:22)
[2018-04-30] MEDS: cycloSPORINE 0.05% 30 DROPERETTE/BOX EACHEYE SCH (08:23)
[2018-04-30] MEDS: BRIMONIDINE 0.2% 5 ML OPHT.BTL EACHEYE SCH (08:23)
[2018-04-30] MEDS: ACETAMINOPHEN 325 MG TAB PO PRN (08:28)
[2018-04-30] MEDS: Naltrexone 4.5mg 4.5 MG PO SCH (09:36)
[2018-04-30] MEDS: THYROID 60 MG TAB PO SCH (09:45)
[2018-04-30 11:27] VITALS: BP 98/62
--- NOTE | 2018-04-30 14:02 | ASMTLACE ---
LACE Length of stay for Answers: 2 days current admission Acuity / Level of Answers: Yes Care: Did the patient have an inpatient admission? Comorbidities - select Answers: Opioid dependence all that apply / Chronic pain Other Notes: Hypothyroid; AFib # of Emergency department Answers: 1-2 visits in the last 6 months Score: 11 Date Signed: 04/30/2018 02:01 PM Electronically Signed By:Dena Molina RN
--- NOTE | 2018-04-30 14:05 | ASDISCHSUM ---
Discharge Information Plan Status:Home with No Needs Medically Cleared to Leave:04/29/2018 Discharge Date:04/29/2018 CM D/C Disposition:Home, Routine, Self-Care ADT D/C Disposition:Home, Routine, Self-Care Projected Discharge Date:04/29/2018 Transportation at D/C: Discharge Delay Reason: Follow-Up Date:04/29/2018 Discharge Slot: Final Diagnosis: Placement Information Patient Contact Information Contact Name:GEOVANY Relationship:Daughter Address: Work Phone: City: [facility] Phone: State/Zip Code: Email: Financial Information Financial Class:[employer] Primary [facility] Desc[facility] Primary Plan Number:[id number] Secondary Plan Desc: Secondary Plan Number: Assessment Information LACE LACE Length of stay for Answers: 2 days current admission Acuity / Level of Answers: Yes Care: Did the patient have an inpatient admission? Comorbidities - select Answers: Opioid dependence all that apply / Chronic pain Other Notes: Hypothyroid; AFib # of Emergency department Answers: 1-2 visits in the last 6 months Score: 11 Date Signed: 04/30/2018 02:01 PM Electronically Signed By:Dena Molina RN [facility] CM Progress Note CM Note CM Note Notes: 04/28/2018 Case Management Note Reviewed chart. Pt admitted with intractable nausea and vomiting. Pt has history of rheumatoid arthritis, myasthenia gravis, migraine, hypothyroidism, and afib. There are no therapy evals ordered at this time. PCP is Dr. Moctezuma with [facility]. Case Management d/c poc: anticipating independent with follow up as directed. Case Management available if needs change. Date Signed: 04/28/2018 04:23 PM Electronically Signed By:Dena Molina RN Case Management Discharge Plan Note Case Management Discharge Discharge Order Complete? Answers: Yes Patient to Obtain Answers: Independently Medications Transportation Arranged Answers: Family/Friends Discharge Comments Notes: 04/30/2018 Case Management Note Pt discharged home independent with follow up as directed. Date Signed: 04/30/2018 02:03 PM Electronically Signed By:Dean Molina RN Intervention Information
--- NOTE | 2018-04-30 16:10 | PDDCSUM ---
Discharge Summary Discharge Summary: This a pleasant 62-year-old female with past medical history significant for rheumatoid arthritis on injectable methotrexate, myasthenia gravis, migraine, hypothyroidism, paroxysmal atrial fibrillation who is admitted UTI and likely early sepsis. Now doing much better. she was admitted and treated accordingly, started on IVF and broad spectrum abx. BCX remained negative. UCx showed E- Coli. She is being transitioned to Keflex PO x 5 more days. She feels much better and is requesting discharge which will be setup she will f/u with her PCP next week DDX: #Likely Sepsis #Dehydration, improving #UTI, UCX c/w E-Coli #Immunosuppression #N/V #Hyponatremia, due to volume deficit #RA #pAfib #Fever, resolved Exam: NAD AAOX3 RRR CTA B S/NT/ND MEDS: SEE MED REC TOTAL TIME SPENT ON D/C IS 35 MINS
== END 2018-04-30 14:31 | disposition home or self-care (01) | DRG 872 ==
LOC: CED 17:32 → CEDHOLD 20:13 → F3E 22:16 → OBSVTOIN 04-28 16:31
PROVIDERS: ADMIT Family Medicine; ATTEND Internal Medicine
DX: A41.51 Sepsis due to Escherichia coli [E. coli] (principal); N39.0 Urinary tract infection, site not specified; E87.1 Hypo-osmolality and hyponatremia; E86.0 Dehydration; M06.9 Rheumatoid arthritis, unspecified; G70.00 Myasthenia gravis without (acute) exacerbation; E03.9 Hypothyroidism, unspecified; I48.0 Paroxysmal atrial fibrillation; H40.9 Unspecified glaucoma; Z88.0 Allergy status to penicillin
CPT/HCPCS: 80053-ER; 83605-ER; 96361-ER; 96365; 96375-ER; G0378; J0696; J2405; J2550

== ENCOUNTER → 2018-08-27 | Outpatient (CLI) | payer OTHER | LOC: BRMIMAGING 13:05 ==

== ENCOUNTER → 2018-08-28 | Outpatient (CLI) | payer OTHER | LOC: FIMAGING 12:38 ==